=== PATIENT | male | born 1970 | race Caucasian/White ===

== ENCOUNTER → 2016-10-26 | Outpatient (REF) | payer OTHER | LOC: M LAB REF 18:11 | PROVIDERS: ATTEND Physician Assistant | DX: J02.9 Acute pharyngitis, unspecified (principal) ==

== ENCOUNTER → 2017-01-31 | Outpatient (REF) | payer OTHER | LOC: M LAB REF 09:46 | PROVIDERS: ATTEND Physician Assistant Medical | DX: J02.9 Acute pharyngitis, unspecified (principal) ==

== ENCOUNTER 2017-08-23 17:05 | Emergency (ER) | payer BC, OTHER ==
[2017-08-23] MEDS: KETOROLAC 30 MG/ML VIAL (J1885) IV (17:48)
[2017-08-23] MEDS: NS 1,000 ML IV (17:48)
[2017-08-23 18:01] LABS: KETONE, URINE AUTO RFX NEGATIVE (NEGATIVE); LEUKOCYTE ESTERASE UR AUTO RFX NEGATIVE (NEGATIVE); MUCUS, URINE RFX SMALL (NEGATIVE); NITRITE, URINE AUTO RFX NEGATIVE (NEGATIVE); RBC, URINE AUTO RFX 103 /HPF (0-3); SPECIFIC GRAVITY UR AUTO RFX 1.021 (1.002-1.035); SQUAM EPITHELIAL CELL UR AURFX 0 /HPF (0-6); WBC, URINE AUTO RFX 1 /HPF (0-3)
[2017-08-23 18:04] LABS: BASO # 0.1 10^3/uL (0.0-0.2); BASO % 0.4 % (0.0-1.0); EOS # 0.1 10^3/uL (0.0-0.50); EOS % 0.8 % (0.0-3.0); HEMATOCRIT 44.1 % (42.0-52.0); HEMOGLOBIN 15.7 g/dl (13.5-17.5); IMMATURE GRANULOCYTE % 0.2 % (0-3.0); LYMPH # 1.8 10^3/uL (1.5-4.5); LYMPH % 13.6 % (24.0-44.0); MEAN CORPUSCULAR HEMOGLOBIN 31.3 pg (27.0-33.0); MEAN CORPUSCULAR HGB CONC 35.6 g/dl (32.0-36.5); MONO # 0.8 10^3/uL (0.0-0.8); MONO % 6.3 % (0.0-5.0); NEUTROPHILS # 10.2 10^3/uL (1.8-7.7); NEUTROPHILS % 78.7 % (36.0-66.0); PLATELET COUNT, AUTOMATED 326 10^3/uL (150-450); RED BLOOD COUNT 5.01 10^6/uL (4.30-6.10); RED CELL DISTRIBUTION WIDTH 12.4 % (11.5-14.5)
[2017-08-23 18:30] LABS: ALBUMIN 4.3 GM/DL (3.2-5.2); ALKALINE PHOSPHATASE 86 U/L (45-117); ALT/SGPT 57 U/L (12-78); ANION GAP 4 MEQ/L (8-16); AST/SGOT 30 U/L (7-37); BILIRUBIN,DIRECT < 0.1 MG/DL (0.0-0.2); BILIRUBIN,TOTAL 0.5 MG/DL (0.2-1.0); BLOOD UREA NITROGEN 19 MG/DL (7-18); CARBON DIOXIDE LEVEL 31 MEQ/L (21-32); CHLORIDE LEVEL 103 MEQ/L (98-107); CREATININE FOR GFR 1.33 MG/DL (0.70-1.30); GLOMERULAR FILTRATION RATE > 60.0 (>60); GLUCOSE, FASTING 112 MG/DL (70-100); LIPASE 236 U/L (73-393); POTASSIUM SERUM 4.2 MEQ/L (3.5-5.1); SODIUM LEVEL 138 MEQ/L (136-145); TOTAL PROTEIN 8.2 GM/DL (6.4-8.2)
[2017-08-23] MEDS: MORPHINE 4 MG/ML 1ML VIAL/SYRINGE (J2270) IV (19:05)
== END 2017-08-23 19:42 | disposition home or self-care (01) ==
LOC: M ED 17:05
DX: N20.1 Calculus of ureter (principal); M43.16 Spondylolisthesis, lumbar region; K76.0 Fatty (change of) liver, not elsewhere classified
CPT/HCPCS: J2270

== ENCOUNTER → 2017-08-28 | Outpatient (REF) | payer BC, OTHER ==
[2017-08-28 14:06] LABS: APPEARANCE, URINE CLEAR (CLEAR); BACTERIA, URINE AUTO NEGATIVE (NEGATIVE); BILIRUBIN, URINE AUTO NEGATIVE (NEGATIVE); BLOOD, URINE BLOOD 1+ (NEGATIVE); COLOR, URINE YELLOW (YELLOW); GLUCOSE, URINE (UA) AUTO NEGATIVE (NEGATIVE); KETONE, URINE AUTO NEGATIVE (NEGATIVE); LEUKOCYTE ESTERASE, URINE AUTO NEGATIVE (NEGATIVE); MUCUS, URINE SMALL (NEGATIVE); NITRITE, URINE AUTO NEGATIVE (NEGATIVE); PROTEIN, URINE AUTO NEGATIVE (NEGATIVE); RBC, URINE AUTO 1 /HPF (0-3); SPECIFIC GRAVITY URINE AUTO 1.014 (1.002-1.035); SQUAMOUS EPITHELIAL CELL UR AU 0 /HPF (0-6); UROBILINOGEN, URINE AUTO 0.2 mg/dL (0.0-2.0); WBC, URINE AUTO 1 /HPF (0-3)
== END ==
LOC: M SMT 12:50
DX: N20.0 Calculus of kidney (principal)
CPT/HCPCS: 81001

== ENCOUNTER → 2020-09-22 | Outpatient (CLI) | payer BC, OTHER ==
[~2020-09-22] MED LIST: FLOM0.4C39 PO; HYDR-3715 PO; IBUP80TA PO; ZOFR4TAB14 PO
--- NOTE | 2020-09-23 15:13 | SLEEPHOME ---
DIAGNOSTIC HOME SLEEP STUDY DATE: 09/22/2020 ORDERED BY: Alexis Carr M.D. Diagnostic home sleep testing was performed due to concern for the obstructive sleep apnea syndrome in this patient with a history of snoring. For testing, a nocturnal T3 respiratory monitoring device was used. Continuous record was made of pulse, oxygen saturation, air flow, chest and abdominal strain, and body position. 11 hours and 59 minutes of data were reviewed. There were 7 hours and 30 minutes marked as time in bed. During the interval marked time in bed, there were 142 respiratory events identified of 10 seconds in duration or greater for a respiratory event index 18.9. The events were primarily obstructive, but 19 mixed and central apneas were also seen. Baseline pulse rate 58. Pulse rate range 48 to 91. Baseline saturation was 93%. Saturations fell to 79%. Testing was performed in both the supine and non-supine positions. IMPRESSION: Abnormal home sleep testing, with repetitive respiratory events and oxygen desaturations to 79% with a respiratory event index of 18.9, is consistent with the obstructive sleep apnea syndrome. RECOMMENDATION: The patient should be encouraged to undergo formal sleep evaluation.
== END ==
LOC: M SLEEP HO 12:23
PROVIDERS: ATTEND Internal Medicine Cardiovascular Disease
DX: G47.33 Obstructive sleep apnea (adult) (pediatric) (principal); G47.31 Primary central sleep apnea

== ENCOUNTER → 2021-10-27 | Outpatient (CLI) | payer BC, OTHER ==
[2021-10-27 14:39] LABS: CHOLESTEROL RISK RATIO 5.885 (<5)
[2021-10-27 21:09] LABS: HEMOGLOBIN A1c 5.9 %
== END ==
LOC: M ADAMS 08:26
PROVIDERS: ATTEND Internal Medicine Cardiovascular Disease
DX: E78.2 Mixed hyperlipidemia (principal); R07.9 Chest pain, unspecified; E66.09 Other obesity due to excess calories

== ENCOUNTER 2021-11-29 21:08 | Emergency (ER) | payer BC, OTHER ==
[~2021-11-29] VITALS: Ht 185.4 cm; Wt 109.5 kg
[2021-11-29 21:25] VITALS: BP 167/82
[2021-11-29 21:58] LABS: BASO # 0.1 10^3/uL (0.0-0.2); BASO % 0.7 % (0.0-1.0); EOS # 0.2 10^3/uL (0.0-0.5); EOS % 2.5 % (0.0-3.0); HEMATOCRIT 46.5 % (42.0-52.0); LYMPH # 3.7 10^3/uL (1.5-5.0); LYMPH % 38.5 % (24.0-44.0); MEAN CORPUSCULAR HEMOGLOBIN 30.4 pg (27.0-33.0); MEAN CORPUSCULAR HGB CONC 34.4 g/dl (32.0-36.5); MEAN CORPUSCULAR VOLUME 88.4 fl (80.0-96.0); MONO # 0.8 10^3/uL (0.0-0.8); MONO % 8.3 % (2.0-8.0); NEUTROPHILS # 4.8 10^3/uL (1.5-8.5); NEUTROPHILS % 49.8 % (36.0-66.0); PLATELET COUNT, AUTOMATED 315 10^3/uL (150-450); RED BLOOD COUNT 5.26 10^6/uL (4.30-6.10); WHITE BLOOD COUNT 9.6 10^3/uL (4.0-10.0)
[2021-11-29 22:12] LABS: INR 1.03; PROTHROMBIN TIME 13.9 SECONDS (12.7-14.5)
[2021-11-29 22:13] LABS: PARTIAL THROMBOPLASTIN TIME 30.1 SECONDS (25.9-37.0)
[2021-11-29 22:25] LABS: CK-MB VALUE MASS 1.2 NG/ML (<3.6); MB/CK RELATIVE INDEX 1.06 (< OR =4)
[2021-11-29 23:12] LABS: RSV AMPLIFICATION NEGATIVE (NEGATIVE)
[2021-11-29 23:51] LABS: CK-MB VALUE MASS 1.1 NG/ML (<3.6); MB/CK RELATIVE INDEX 1.01 (< OR =4)
[2021-11-30] MEDS ORDERED: ASPIRIN 81 MG CHEW TABLET PO ONE (04:30)
[2021-11-30] MEDS: NS 1,000 ML IV SCH ×2 (04:43→16:13)
[2021-11-30] MEDS ORDERED: ENOXAPARIN 40MG/0.4ML SYRINGE (J1650 PER 10MG) SC SCH (09:00)
[2021-11-30] MEDS ORDERED: CLOPIDOGREL 75 MG TAB PO SCH (09:30)
[2021-11-30] MEDS ORDERED: ALLE24TA7 PO (09:59)
[2021-11-30] MEDS ORDERED: ASPI81TA26 PO (09:59)
[2021-11-30] MEDS ORDERED: HOME MED LIST COMPLETE! XX SCH (10:00)
[2021-11-30 16:06] LABS: CHOLESTEROL RISK RATIO 7.343 (<5); THYROID STIMULATING HORMONE 2.43 uIU/ML (0.358-3.740)
[2021-11-30 16:13] LABS: HEMOGLOBIN A1c 5.8 %
[2021-11-30 18:40] VITALS: BP 146/90
== END 2021-11-30 18:41 | disposition short-term general hospital (02) ==
LOC: M ED 21:08 → EDBD 21:08 → M ED 11-30 18:41
DX: G45.9 Transient cerebral ischemic attack, unspecified (principal); I35.0 Nonrheumatic aortic (valve) stenosis

== ENCOUNTER → 2023-10-26 | Outpatient (CLI) | payer BC ==
[~2023-10-26] MED LIST changes: +ALLE24TA7 PO; +ASPI81TA26 PO
== END ==
LOC: M PLAIMG 07:59
PROVIDERS: ATTEND Internal Medicine Cardiovascular Disease
DX: I35.9 Nonrheumatic aortic valve disorder, unspecified (principal); I31.39 Other pericardial effusion (noninflammatory); G47.33 Obstructive sleep apnea (adult) (pediatric)